=== PATIENT | male | born 1955 | race Caucasian/White ===

== ENCOUNTER → 2018-12-10 | Day surgery (SDC) | payer OTHER ==
[~2018-12-10] MED LIST: ASPIR 8181 MG PO; FENOFIBRATE160 MG PO; FISH OIL 1,001000 M2 PO; JANUMET XR 1001 EACH PO; JARDIANCE10 MG PO; LIPITOR 20 MG T20 M1 PO; LISINOPRIL5 MG PO
[2018-12-10 08:56] LABS: HEMATOCRIT 46.1 % (42.0-52.0); HEMOGLOBIN 15.9 gm/dL (14.0-18.0); MCH 30.2 pg (26.0-34.0); MCHC 34.5 g/dL (28.0-37.0); MCV 87.4 fL (80.0-100.0); MPV 9.2 fl. (7.2-11.1); RBC 5.27 mil/uL (4.50-6.00); RDW-CV 14.2 % (10.5-14.5); WBC 7.2 thou/uL (4.0-11.0)
[2018-12-10 09:09] LABS: CALCIUM 9.4 mg/dL (8.5-10.1); CREATININE 1.1 mg/dL (0.6-1.3); POTASSIUM 4.1 mmol/L (3.5-5.1)
[2018-12-10 09:14] LABS: ALBUMIN 3.9 g/dL (3.4-5.0); TOTAL PROTEIN 7.2 g/dL (6.4-8.2)
--- NOTE | 2018-12-10 14:05 | EKG ---
[place] [address] ELECTROCARDIOGRAM REPORT Name: SCOTT BARBOSA Room: [facility].#: [id number] Admission: 12/10/18 Attend Phys: Dao Chavez MD Discharge: Date of : 53 Report #: [id number] THIS REPORT FOR: //name// [facility] Test Date: 2018-12-10 Test Time: 08:27:03 Pat Name: SCOTT BARBOSA Department: Room: Gender: M Filer And Sander: : 1955 Requested By: Dao Chavez Order Number: [id number] Araceli MD: Arslan Castillo Measurements Intervals [place] Rate: 55 P: -23 AL: 147 QRS: -10 QRSD: 122 T: 119 QT: 418 QTc: 400 Interpretive Statements Sinus bradycardia nonspecific t wave changes No previous ECG available for comparison Electronically Signed On 12-10-2018 14:05:39 CDT by Arslan Castillo [email or web address] <ELECTRONICALLY SIGNED> By: Arslan Castillo MD, [facility] 12/10/18 1405 0827 0827 Arslan Castillo MD, FACC /EPI
--- NOTE | 2018-12-13 18:06 | PATH ---
[facility] [address] [place] [address] PATHOLOGY RPT PROCEDURE Name: SCOTT BARBOSA DAVID Room: [facility] Sintia#: [id number] Admission: 12/10/18 Date of : 53 Discharge: Report #: [id number] Path Case #: [id number] [facility] Accession Number: [id number] . 01 Material submitted: . colon - ASCENDING COLON POLYP - HOT SNARE. Modifiers: ascending . 01 Clinical history: . Polyp of ascending colon . 02 Diagnosis: Ascending colon polyp, hot snare: - Tubular adenoma, negative for high-grade dysplasia. (EMILIA:katina; 12/13/2018) QMS/12/13/2018 . 02 Electronically signed: . Mohit Robles MD, Pathologist NPI- [id number] . 01 Gross description: . Received in formalin labeled "Josué, Edward, ascending colon polyp, hot snare," are multiple segments of bhakta soft tissue admixed with vegetative material measuring 2.5 x 2.0 x 0.6 cm in aggregate dimensions. The specimen is filtered and entirely submitted in cassettes A1 through A3. (TSD; 12/10/2018) TOB/TOB . 02 Pathologist provided ICD-10: D12.2 . 02 CPT . 606682 Specimen Comment: A courtesy copy of this report has been sent to Specimen Comment: [phone], . Specimen Comment: Report sent to / DR ARGUETA Performed at: [address], [place], [place] [id number] MD Diogenes Moore MD Phone: [phone] Performed at: [address] [facility] [address] [address], [place], [place] [id number] MD Mohit Robles MD Phone: [phone]
== END | disposition home or self-care (01) ==
LOC: M.SUR 08:01
PROVIDERS: Internal Medicine Gastroenterology
DX: D12.2 Benign neoplasm of ascending colon (principal); I10 Essential (primary) hypertension; E11.9 Type 2 diabetes mellitus without complications; E78.5 Hyperlipidemia, unspecified; E66.09 Other obesity due to excess calories; F17.210 Nicotine dependence, cigarettes, uncomplicated; Z98.890 Other specified postprocedural states; Z79.899 Other long term (current) drug therapy; Z79.82 Long term (current) use of aspirin